=== PATIENT | female | born 1980 | race Caucasian/White ===

== ENCOUNTER → 2017-02-06 | Outpatient (REF) | payer BC ==
[~2017-02-06] MED LIST: CETI10TA PO; DICL13PA ID; OMEPPOW18 PO; TRAM37.5 PO; VITACAP31 PO; [UNRECOGNIZED DRUG - CODE] PO
== END ==
LOC: M SFHCCLAY 15:51
PROVIDERS: ATTEND Family Medicine
DX: Z12.4 Encounter for screening for malignant neoplasm of cervix (principal)

== ENCOUNTER → 2017-08-20 | Outpatient (REF) | payer BC | LOC: M SFHCCLAY 14:57 | DX: Z01.419 Encounter for gynecological examination (general) (routine) without abnormal findings (principal); R87.612 Low grade squamous intraepithelial lesion on cytologic smear of cervix (LGSIL) ==

== ENCOUNTER → 2019-04-21 | Outpatient (REF) | payer BC ==
[2019-04-22 12:04] LABS: BASO # 0.1 10^3/uL (0.0-0.2); BASO % 0.7 % (0.0-1.0); EOS # 0.2 10^3/uL (0.0-0.5); EOS % 2.5 % (0.0-3.0); HEMATOCRIT 40.1 % (36.0-47.0); HEMOGLOBIN 13.5 g/dl (12.0-15.5); LYMPH # 2.4 10^3/uL (1.5-5.0); LYMPH % 35.7 % (24.0-44.0); MEAN CORPUSCULAR HEMOGLOBIN 31.5 pg (27.0-33.0); MEAN CORPUSCULAR HGB CONC 33.7 g/dl (32.0-36.5); MEAN CORPUSCULAR VOLUME 93.5 fl (80.0-96.0); MONO # 0.6 10^3/uL (0.0-0.8); MONO % 9.1 % (0.0-5.0); NEUTROPHILS # 3.4 10^3/uL (1.5-8.5); NEUTROPHILS % 51.7 % (36.0-66.0); PLATELET COUNT, AUTOMATED 283 10^3/uL (150-450); RED BLOOD COUNT 4.29 10^6/uL (4.00-5.40); WHITE BLOOD COUNT 6.7 10^3/uL (4.0-10.0)
[2019-04-22 12:08] LABS: BLOOD UREA NITROGEN 8 MG/DL (7-18); CALCIUM LEVEL 8.7 MG/DL (8.5-10.1); CARBON DIOXIDE LEVEL 26 MEQ/L (21-32); CHLORIDE LEVEL 106 MEQ/L (98-107); CREATININE FOR GFR 0.72 MG/DL (0.55-1.30); GLOMERULAR FILTRATION RATE > 60.0 (>60); GLUCOSE, FASTING 87 MG/DL (70-100); POTASSIUM SERUM 3.9 MEQ/L (3.5-5.1); SODIUM LEVEL 139 MEQ/L (136-145)
[2019-04-22 12:09] LABS: ALBUMIN 3.6 GM/DL (3.2-5.2); ALT/SGPT 21 U/L (12-78); BILIRUBIN,TOTAL 0.3 MG/DL (0.2-1.0); TOTAL PROTEIN 6.9 GM/DL (6.4-8.2)
[2019-04-22 13:48] LABS: H PYLORI QUALITATIVE IgG NEGATIVE (NEGATIVE)
== END ==
LOC: M SFHCCLAY 15:55
PROVIDERS: ATTEND Family Medicine
DX: K29.50 Unspecified chronic gastritis without bleeding (principal); R10.84 Generalized abdominal pain

== ENCOUNTER → 2019-04-29 | Outpatient (CLI) | payer BC ==
--- NOTE | 2019-04-29 10:28 | REP ---
REASON FOR EXAM: Abdominal pain. COMPARISON: None. Multiple sonographic images of the liver show the hepatic parenchymal echo pattern to be within normal limits. There are no masses. There is no intrahepatic or extrahepatic ductal dilatation. The common bile duct measures 2 mm. Multiple ultrasonographic images of the gallbladder show no abnormal gallbladder wall thickening, pericholecystic edema, or choleliths. The imaged portion of the pancreas and right kidney are within normal limits. IMPRESSION: Right upper quadrant ultrasound is within normal limits. Electronically Signed by Johan Slaughter DO 04/29/2019 02:37 P
== END ==
LOC: M RAD 08:06
PROVIDERS: ATTEND Family Medicine
DX: R10.84 Generalized abdominal pain (principal)

== ENCOUNTER → 2019-07-03 | Outpatient (CLI) | payer BC ==
[2019-07-03 13:00] LABS: FREE T4 0.86 NG/DL (0.76-1.46); THYROID STIMULATING HORMONE 2.16 uIU/ML (0.358-3.740)
== END ==
LOC: M LAB 11:14
PROVIDERS: ATTEND Internal Medicine Gastroenterology
DX: K58.0 Irritable bowel syndrome with diarrhea (principal)

== ENCOUNTER → 2019-08-07 | Outpatient (CLI) | payer BC ==
--- NOTE | 2019-08-08 02:58 | REP ---
Clinical: Pelvic pain. Technique: Transabdominal pelvic ultrasound followed by transvaginal examination for better evaluation of the endometrium and adnexa with color Doppler evaluation of the ovaries. Findings: Bladder is normal and measures 11.2 x 7.9 x 10.2 cm. Normal anteverted uterus measures 8.1 x 3.2 x 5.3 cm. Endometrial complex measures 11.1 mm thickness. No discrete uterine or endometrial abnormality appreciated. The bilateral ovaries are normal. The right ovary measures 3.1 x 3.0 x 3.5 cm (RI 0.56) and includes 1.4 cm dominant follicle. Left ovary measures 3.7 x 2.2 x 2.3 cm (RI 0.49). Impression: Normal pelvic ultrasound. Electronically Signed by Mac Ferguson MD 08/08/2019 02:50 A
== END ==
LOC: M RAD 11:22
PROVIDERS: ATTEND Family Medicine
DX: R10.2 Pelvic and perineal pain (principal)

== ENCOUNTER → 2020-02-16 | Outpatient (REF) | payer BC ==
[~2020-02-16] MED LIST changes: +BIOT1CAP2 PO; +CHOL50003 PO; +CLON0.12 PO; +DIGE1CHW PO; +LACT30TA PO; +LOPE2TAB12 PO; +OMEP-218 PO; +OMEP40CA97 PO; +VITA100054 PO; +ZOLO50TA PO; +ZYRTTAB8 PO
[2020-02-17 12:58] LABS: BASO # 0.1 10^3/uL (0.0-0.2); BASO % 0.6 % (0.0-1.0); EOS # 0.2 10^3/uL (0.0-0.5); EOS % 2.9 % (0.0-3.0); HEMATOCRIT 39.9 % (36.0-47.0); HEMOGLOBIN 12.9 g/dl (12.0-15.5); LYMPH # 2.6 10^3/uL (1.5-5.0); LYMPH % 33.7 % (24.0-44.0); MEAN CORPUSCULAR HEMOGLOBIN 30.9 pg (27.0-33.0); MEAN CORPUSCULAR HGB CONC 32.3 g/dl (32.0-36.5); MEAN CORPUSCULAR VOLUME 95.7 fl (80.0-96.0); MONO # 0.6 10^3/uL (0.0-0.8); NEUTROPHILS # 4.3 10^3/uL (1.5-8.5); NEUTROPHILS % 54.4 % (36.0-66.0); PLATELET COUNT, AUTOMATED 305 10^3/uL (150-450); RED BLOOD COUNT 4.17 10^6/uL (4.00-5.40); WHITE BLOOD COUNT 7.8 10^3/uL (4.0-10.0)
[2020-02-17 13:13] LABS: ALBUMIN 3.7 GM/DL (3.2-5.2); ALT/SGPT 14 U/L (12-78); BILIRUBIN,TOTAL 0.3 MG/DL (0.2-1.0); BLOOD UREA NITROGEN 16 MG/DL (7-18); CALCIUM LEVEL 8.5 MG/DL (8.5-10.1); CARBON DIOXIDE LEVEL 26 MEQ/L (21-32); CHLORIDE LEVEL 103 MEQ/L (98-107); CREATININE FOR GFR 0.81 MG/DL (0.55-1.30); GLOMERULAR FILTRATION RATE > 60.0 (>60); GLUCOSE, FASTING 80 MG/DL (70-100); SODIUM LEVEL 136 MEQ/L (136-145); THYROXINE (T4) 7.6 UG/DL (4.5-12.0); TOTAL PROTEIN 7.1 GM/DL (6.4-8.2)
== END ==
LOC: M SFHCCLAY 16:03
PROVIDERS: ATTEND Family Medicine
DX: R10.2 Pelvic and perineal pain (principal); R63.5 Abnormal weight gain

== ENCOUNTER → 2020-04-19 | Outpatient (CLI) | payer BC | LOC: M LABSMTC 09:45 | PROVIDERS: ATTEND Anesthesiology | DX: Z03.818 Encounter for observation for suspected exposure to other biological agents ruled out (principal) | CPT/HCPCS: C9803; U0002 ==

== ENCOUNTER → 2020-04-19 | Outpatient (REF) | payer BC | LOC: M LAB REF 10:14 | PROVIDERS: ATTEND Internal Medicine Gastroenterology | DX: K58.0 Irritable bowel syndrome with diarrhea (principal) ==

== ENCOUNTER 2020-04-23 12:01 | Day surgery (SDC) | payer BC ==
[~2020-04-23] VITALS: Ht 170.2 cm; Wt 83.9 kg
[~2020-04-23 12:01] MED LIST changes: +NS 1,000 ML IV ONE
[2020-04-23] MEDS ORDERED: propofoL 200 MG/20 ML VIAL As Ordered ONE (14:00)
[2020-04-23] MEDS ORDERED: LIDOCAINE 2% 100MG/5ML SDV (FOR ANES.) As Ordered ONE (14:00)
--- NOTE | 2020-04-23 14:00 | ROOR ---
Patient Name: Svitlana Dennis Procedure Date: 04/23/2020 1:49 PM Date of : 1980 Age: 39 Room: [facility] Gender: Female Note Status: Finalized Procedure: Upper GI endoscopy Indications: Dyspepsia, Heartburn Providers: Lyle JOSUE MD Referring MD: YENY OROURKE DO Requesting Provider: Medicines: Monitored Anesthesia Care Complications: No immediate complications. Procedure: Pre-Anesthesia Assessment: - The heart rate, respiratory rate, oxygen saturations, blood pressure, adequacy of pulmonary ventilation, and response to care were monitored throughout the procedure. The Endoscope was introduced through the mouth, and advanced to the second part of duodenum. The upper GI endoscopy was accomplished without difficulty. The patient tolerated the procedure well. Findings: The esophagus was normal. The stomach was normal. The examined duodenum was normal. Impression: - Normal esophagus. - Normal stomach. - Normal examined duodenum. - No specimens collected. Recommendation: - Observe patient's clinical course. - Continue present medications. - Follow an antireflux regimen. Lyle Josue MD Lyle JOSUE MD 04/23/2020 1:59:40 PM Electronically signed by Lyle JOSUE MD Number of Addenda: 0 Note Initiated On: 04/23/2020 1:49 PM Estimated Blood Loss: Estimated blood loss: none.
--- NOTE | 2020-04-23 14:13 | ROOR ---
Patient Name: Svitlana Dennis Procedure Date: 04/23/2020 1:50 PM Date of : 1980 Age: 39 Room: [facility] Gender: Female Note Status: Finalized Procedure: Colonoscopy Indications: Mixed irritable bowel syndrome, Change in bowel habits Providers: Lyle JOSUE MD Referring MD: YENY OROURKE DO Requesting Provider: Medicines: Monitored Anesthesia Care Complications: No immediate complications. Procedure: Pre-Anesthesia Assessment: - The heart rate, respiratory rate, oxygen saturations, blood pressure, adequacy of pulmonary ventilation, and response to care were monitored throughout the procedure. The Colonoscope was introduced through the anus and advanced to 10 cm into the ileum. The colonoscopy was performed without difficulty. The patient tolerated the procedure well. The quality of the bowel preparation was fair. Findings: The perianal and digital rectal examinations were normal. (EXAM: Complete, PREP: Suboptimal) Small Internal Hemorrhoids. The colon (entire examined portion) appeared normal. The terminal ileum appeared normal. Impression: - (EXAM: Complete, PREP: Suboptimal) - Small Internal Hemorrhoids. - The entire colon is normal. - The examined portion of the ileum was normal. - No specimens collected. Recommendation: - Continue present medications. - Use fiber, for example Citrucel, Fibercon, Konsyl or Metamucil. Lyle Josue MD Lyle JOSUE MD 04/23/2020 2:12:53 PM Electronically signed by Lyle JOSUE MD Number of Addenda: 0 Note Initiated On: 04/23/2020 1:50 PM Estimated Blood Loss: Estimated blood loss: none.
[2020-04-23 14:35] VITALS: BP 153/99
== END 2020-04-23 14:51 | disposition home or self-care (01) ==
LOC: M OPP 12:01
PROVIDERS: ATTEND Internal Medicine Gastroenterology
DX: K58.2 Mixed irritable bowel syndrome (principal); R19.4 Change in bowel habit; K64.8 Other hemorrhoids; R12 Heartburn; Z79.899 Other long term (current) drug therapy; Z88.5 Allergy status to narcotic agent; Z91.040 Latex allergy status; Z87.891 Personal history of nicotine dependence

== ENCOUNTER → 2021-01-20 | Outpatient (REF) | payer BC ==
[~2021-01-20] MED LIST changes: -NS 1,000 ML IV ONE; +OMEP40CA4 PO; -OMEP40CA97 PO
[2021-01-20 12:05] LABS: BASO % 0.6 % (0.0-1.0); EOS # 0.2 10^3/uL (0.0-0.5); EOS % 2.7 % (0.0-3.0); HEMATOCRIT 44.2 % (36.0-47.0); HEMOGLOBIN 14.6 g/dl (12.0-15.5); LYMPH # 2.5 10^3/uL (1.5-5.0); LYMPH % 36.7 % (24.0-44.0); MEAN CORPUSCULAR HEMOGLOBIN 30.5 pg (27.0-33.0); MEAN CORPUSCULAR VOLUME 92.5 fl (80.0-96.0); MONO # 0.6 10^3/uL (0.0-0.8); MONO % 8.6 % (2.0-8.0); NEUTROPHILS # 3.5 10^3/uL (1.5-8.5); NEUTROPHILS % 51.3 % (36.0-66.0); PLATELET COUNT, AUTOMATED 321 10^3/uL (150-450); RED BLOOD COUNT 4.78 10^6/uL (4.00-5.40); WHITE BLOOD COUNT 6.8 10^3/uL (4.0-10.0)
[2021-01-20 12:42] LABS: ALBUMIN 3.9 GM/DL (3.2-5.2); ALT/SGPT 16 U/L (12-78); BILIRUBIN,TOTAL 0.4 MG/DL (0.2-1.0); BLOOD UREA NITROGEN 12 MG/DL (7-18); CALCIUM LEVEL 8.5 MG/DL (8.5-10.1); CARBON DIOXIDE LEVEL 29 MEQ/L (21-32); CHLORIDE LEVEL 103 MEQ/L (98-107); FREE T4 0.85 NG/DL (0.76-1.46); GLOMERULAR FILTRATION RATE > 60.0 (>60); GLUCOSE, FASTING 86 MG/DL (70-100); SODIUM LEVEL 137 MEQ/L (136-145); TOTAL PROTEIN 7.1 GM/DL (6.4-8.2); TOTAL T3 118.6 NG/DL (60.0-181.0)
== END ==
LOC: M SFHCCLAY 07:39
PROVIDERS: ATTEND Family Medicine
DX: R63.5 Abnormal weight gain (principal); K58.0 Irritable bowel syndrome with diarrhea; R10.84 Generalized abdominal pain

== ENCOUNTER → 2022-02-16 | Outpatient (REF) | payer OTHER ==
[~2022-02-16] MED LIST changes: +OMEP-173 PO; -OMEP-218 PO
[2022-02-16 12:11] LABS: BASO # 0.1 10^3/uL (0.0-0.2); BASO % 0.9 % (0.0-1.0); EOS # 0.2 10^3/uL (0.0-0.5); EOS % 2.6 % (0.0-3.0); HEMATOCRIT 40.4 % (36.0-47.0); HEMOGLOBIN 13.7 g/dl (12.0-15.5); LYMPH # 2.2 10^3/uL (1.5-5.0); LYMPH % 31.5 % (24.0-44.0); MEAN CORPUSCULAR HEMOGLOBIN 31.4 pg (27.0-33.0); MEAN CORPUSCULAR HGB CONC 33.9 g/dl (32.0-36.5); MEAN CORPUSCULAR VOLUME 92.7 fl (80.0-96.0); MONO # 0.6 10^3/uL (0.0-0.8); MONO % 8.4 % (2.0-8.0); NEUTROPHILS % 56.5 % (36.0-66.0); PLATELET COUNT, AUTOMATED 275 10^3/uL (150-450); RED BLOOD COUNT 4.36 10^6/uL (4.00-5.40)
[2022-02-16 12:49] LABS: ALBUMIN 3.6 GM/DL (3.2-5.2); ALT/SGPT 17 U/L (12-78); BILIRUBIN,TOTAL 0.3 MG/DL (0.2-1.0); BLOOD UREA NITROGEN 12 MG/DL (7-18); CALCIUM LEVEL 8.6 MG/DL (8.5-10.1); CARBON DIOXIDE LEVEL 26 MEQ/L (21-32); CHLORIDE LEVEL 107 MEQ/L (98-107); CHOLESTEROL LEVEL 218 MG/DL (<200); CHOLESTEROL RISK RATIO 3.633 (<5); CREATININE FOR GFR 0.62 MG/DL (0.55-1.30); FREE T4 0.76 NG/DL (0.76-1.46); GLOMERULAR FILTRATION RATE > 60.0 (>58); GLUCOSE, FASTING 88 MG/DL (70-100); HDL CHOLESTEROL 60 MG/DL (>40); LDL CHOLESTEROL 96 MG/DL (<100); NON-HDL-C 158 MG/DL; POTASSIUM SERUM 5.2 MEQ/L (3.5-5.1); SODIUM LEVEL 138 MEQ/L (136-145); TOTAL PROTEIN 6.8 GM/DL (6.4-8.2); TRIGLYCERIDES LEVEL 309 MG/DL (<150)
[2022-02-16 12:54] LABS: TOTAL T3 110.1 NG/DL (60.0-181.0)
== END ==
LOC: M SFHCCLAY 08:00
PROVIDERS: ATTEND Family Medicine
DX: E78.2 Mixed hyperlipidemia (principal); R23.2 Flushing

== ENCOUNTER → 2023-02-27 | Outpatient (REF) | payer OTHER ==
[2023-02-27 12:05] LABS: HEMATOCRIT 42.5 % (36.0-47.0); HEMOGLOBIN 13.9 g/dl (12.0-15.5); MEAN CORPUSCULAR HEMOGLOBIN 30.8 pg (27.0-33.0); MEAN CORPUSCULAR HGB CONC 32.7 g/dl (32.0-36.5); PLATELET COUNT, AUTOMATED 252 10^3/uL (150-450); RED BLOOD COUNT 4.52 10^6/uL (4.00-5.40); WHITE BLOOD COUNT 6.3 10^3/uL (4.0-10.0)
[2023-02-27 12:12] LABS: ALBUMIN 3.7 G/DL (3.2-5.2); ALKALINE PHOSPHATASE 67 U/L (46-116); ALT/SGPT 17 U/L (7.0-40); AST/SGOT 16 U/L (<34); BILIRUBIN,TOTAL 0.5 MG/DL (0.3-1.2); BLOOD UREA NITROGEN 9 MG/DL (9-23); CALCIUM LEVEL 8.7 MG/DL (8.5-10.1); CARBON DIOXIDE LEVEL 24 MMOL/L (20-31); CHLORIDE LEVEL 105 MMOL/L (98-107); CHOLESTEROL LEVEL 222 MG/DL (<200); CHOLESTEROL RISK RATIO 3.46 (<5); CREATININE FOR GFR 0.66 MG/DL (0.55-1.30); FOLLICLE STIMULATING HORMONE 9.4 mIU/ML; GLOMERULAR FILTRATION RATE > 60.0 (>58); GLUCOSE, FASTING 93 MG/DL (60-100); LDL CHOLESTEROL 89.2 MG/DL (<100); LUTEINIZING HORMONE 5.3 mIU/ML; POTASSIUM SERUM 4.3 MMOL/L (3.5-5.1); SODIUM LEVEL 141 MMOL/L (136-145); TOTAL PROTEIN 6.8 G/DL (5.7-8.2); TRIGLYCERIDES LEVEL 344 MG/DL (<150)
[2023-02-27 12:13] LABS: FREE T4 1.05 NG/DL (0.89-1.76); THYROID STIMULATING HORMONE 3.108 uIU/ML (0.55-4.78)
== END ==
LOC: M SFHCCLAY 07:08
PROVIDERS: ATTEND Family Medicine
DX: K58.0 Irritable bowel syndrome with diarrhea (principal); R23.2 Flushing; R63.5 Abnormal weight gain; E78.2 Mixed hyperlipidemia

== ENCOUNTER 2025-04-03 08:47 | Emergency (ER) | payer BC, OTHER, SELFPAY ==
[~2025-04-03] VITALS: Ht 170.2 cm; Wt 89.7 kg
[2025-04-03 09:57] LABS: BASO # 0.0 10^3/uL (0.0-0.2); BASO % 0.7 % (0.0-1.0); EOS # 0.1 10^3/uL (0.0-0.5); EOS % 1.5 % (0.0-3.0); LYMPH # 1.7 10^3/uL (1.5-5.0); LYMPH % 29.9 % (24.0-44.0); MONO # 0.5 10^3/uL (0.0-0.8); MONO % 7.9 % (2.0-8.0); NEUTROPHILS # 3.5 10^3/uL (1.5-8.5); NEUTROPHILS % 59.7 % (36.0-66.0); PLATELET COUNT, AUTOMATED 260 10^3/uL (150-450)
[2025-04-03 10:01] LABS: KETONE, URINE AUTO RFX NEGATIVE (NEGATIVE); LEUKOCYTE ESTERASE UR AUTO RFX NEGATIVE (NEGATIVE); MUCUS, URINE RFX SMALL (NEGATIVE); NITRITE, URINE AUTO RFX NEGATIVE (NEGATIVE); RBC, URINE AUTO RFX 1 /HPF (0-3); SQUAM EPITHELIAL CELL UR AURFX 0 /HPF (0-6); WBC, URINE AUTO RFX 0 /HPF (0-3)
[2025-04-03 10:08] LABS: INR 0.87
[2025-04-03 10:19] LABS: ALT/SGPT 58 U/L (7.0-40); AST/SGOT 48 U/L (<34); CALCIUM LEVEL 9.6 MG/DL (8.5-10.1); CARBON DIOXIDE LEVEL 25 MMOL/L (20-31); CHLORIDE LEVEL 102 MMOL/L (98-107); CREATININE FOR GFR 0.69 MG/DL (0.55-1.30); GLOMERULAR FILTRATION RATE > 90.0 (>58); POTASSIUM SERUM 4.1 MMOL/L (3.5-5.1); SODIUM LEVEL 139 MMOL/L (136-145)
[2025-04-03 10:36] LABS: HCG, SERUM QUALITATIVE NEGATIVE (NEGATIVE)
[2025-04-03] MEDS ORDERED: ISOVUE-370 76% 100 ML VIAL As Ordered ONE (11:09)
[2025-04-03] MEDS ORDERED: CLON0.5T17 PO (11:28)
[2025-04-03] MEDS ORDERED: CETI-14 PO (11:28)
[2025-04-03] MEDS ORDERED: HOME MED LIST COMPLETE! XX SCH (11:30)
[2025-04-03 13:15] VITALS: BP 142/77; TEMP 97.2; O2SAT 98
== END 2025-04-03 13:30 | disposition home or self-care (01) ==
LOC: M ED 08:47
DX: S30.1XXA Contusion of abdominal wall, initial encounter (principal); Y92.9 Unspecified place or not applicable; Y93.9 Activity, unspecified; Y99.9 Unspecified external cause status; E27.9 Disorder of adrenal gland, unspecified; K58.9 Irritable bowel syndrome, unspecified; E78.5 Hyperlipidemia, unspecified; F41.9 Anxiety disorder, unspecified; Z87.891 Personal history of nicotine dependence; Z88.5 Allergy status to narcotic agent; Z91.040 Latex allergy status; Z91.09 Other allergy status, other than to drugs and biological substances
CPT/HCPCS: 36415; 74177; 80047; 80048; 80076; 81001; 83605; 83690; 84703; 85025; 85610; 85730; 93041; 99285; Q9967